=== PATIENT | female | born 1980 | race African-American/Black ===

== ENCOUNTER 2017-02-18 18:12 | Observation (INO) | payer BC ==
[~2017-02-18] VITALS: Ht 162.6 cm; Wt 92.1 kg
[2017-02-18] MEDS ORDERED: PREN-88 PO (18:53)
== END 2017-02-18 20:35 | disposition home or self-care (01) ==
LOC: L&D 18:12
PROVIDERS: ADMIT Specialist; ATTEND Specialist
DX: O26.893 Other specified pregnancy related conditions, third trimester (principal); Z3A.28 28 weeks gestation of pregnancy
CPT/HCPCS: 76815; 76818; 99281; G0378